=== PATIENT | male | born 2000 | race Two or more races ===

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

== ENCOUNTER 2019-12-04 15:01 | Emergency (ER) | payer OTHER ==
[~2019-12-04] VITALS: Ht 165.1 cm; Wt 83.9 kg
[2019-12-04 15:08] VITALS: Ht 165.1 cm; Wt 83.9 kg
[2019-12-04 15:45] VITALS: BP 146/83
== END 2019-12-04 15:45 | disposition home or self-care (01) ==
LOC: ED 15:01
DX: L98.9 Disorder of the skin and subcutaneous tissue, unspecified (principal); Z13.9 Encounter for screening, unspecified
CPT/HCPCS: J0171